=== PATIENT | female | born 1940 | race Caucasian/White ===

== ENCOUNTER 2016-05-23 06:51 | Day surgery (SDC) | payer BC ==
--- NOTE | ~2016-05-23 | EGD ---
EGD REPORT [facility] [address] [place]. [place] [address] NAME: BHUPINDER MEDRANO : [birth year] STATUS : REG [facility] [place] PAT#: [id number] AGE: 76 ADM/REG DATE : 05/23/16 MR#: [id number] REPORT SERV DATE: 05/23/16 DICTATED BY: VONDA SALDIVAR DATE: 05/23/16 REPORT STATUS : Draft TRANSCRIBED BY: [employer] DATE: 05/23/16 [facility] Patient Name: Bhupinder Medrano Date of : 1940 Attending MD: VONDA SALDIVAR MD Procedure Date No Time: 05/23/2016 Procedure: Colonoscopy Indications: High risk colon cancer surveillance: Personal history of colonic polyps, FH of Colonic Polyps - 1st degree relative Referring MD: AIDE LEMUS Medicines: as per anesthesia Complications: No immediate complications. Procedure: Pre-Anesthesia Assessment: - ASA Grade Assessment: II - A patient with mild systemic disease. After I obtained informed consent, the scope was passed under direct vision. Throughout the procedure, the patient's blood pressure, pulse, and oxygen saturations were monitored continuously. The PCF [id number] was introduced through the anus and advanced to the cecum, identified by appendiceal orifice and ileocecal valve. The colonoscopy was performed without difficulty. The patient tolerated the procedure well. The quality of the bowel preparation was adequate to identify polyps. Findings: The perianal and digital rectal examinations were normal. A sessile polyp was found in the ascending colon. The polyp was 4 mm in size. The polyp was removed with a cold biopsy forceps. Resection and retrieval were complete. A few small and large-mouthed diverticula were found in the sigmoid colon, in the transverse colon and in the ascending colon. Internal hemorrhoids were found during endoscopy and were mild. Impression: - One 4 mm polyp in the ascending colon. Resected and retrieved. - Diverticulosis in the sigmoid colon, in the transverse colon and in the ascending colon. - Internal hemorrhoids. Recommendation: - Await pathology results. - Repeat colonoscopy for surveillance based on pathology results. EGD REPORT [facility] [address] [place]. [address] NAME: BHUPINDER MEDRANO : [birth year] STATUS : REG [facility]#: [id number] AGE: 76 ADM/REG DATE : 05/23/16 MR#: [id number] REPORT SERV DATE: 05/23/16 DICTATED BY: VONDA SALDIVAR. DATE: 05/23/16 REPORT STATUS : Draft TRANSCRIBED BY: [employer] DATE: 05/23/16 Procedure Code(s): --- Professional --- 55372, Colonoscopy, flexible, proximal to splenic flexure; with biopsy, single or multiple Diagnosis Code(s): --- Professional --- D12.2, Benign neoplasm of ascending colon K64.8, Other hemorrhoids K57.30, Diverticulosis of large intestine without perforation or abscess without bleeding Z86.010, Personal history of colonic polyps Z83.71, Family history of colonic polyps CPT copyright 2013 [employer]. All rights reserved. The codes documented in this report are preliminary and upon social media executive review may be revised to meet current compliance requirements. VONDA SALDIVAR MD 05/23/2016 8:57 AM This report has been signed electronically. Number of Addenda: 0 Note Initiated On: 05/23/2016 8:31 AM Scope Withdrawal Time 0 hours 6 minutes 24 seconds [address] [place] [address]
[~2016-05-23 06:51] MED LIST: ADVIL PO; ASAB; ASAB PO; B1100 PO; CELEXA20 PO; CELEXA40 MG PO; CYANO1000T PO; FOLIC PO; MCZ25; MULTI-VIT HP PO; PCET PO; PRAV10 PO; PRAVAC PO; PRILO PO; PRIN5 PO; PROTONIX PO; PROZAC PO; STERAPRED DS10 MG; SYN.025B PO; ULTRAM50 PO; VENTOLIN HFA INH; VITAMIN B-121000 MC1 SL; VITAMIN D1000 UNI1 PO; WELLSR150 PO; X25 PO
== END 2016-05-23 23:59 | disposition home or self-care (01) ==
LOC: DMU 06:51
PROVIDERS: Internal Medicine Gastroenterology
PROC: 0DBK8ZZ Excision of Ascending Colon, Via Natural or Artificial Opening Endoscopic (ICD-10-PCS; principal; 2016-05-23 08:30)
DX: D12.2 Benign neoplasm of ascending colon (principal); K57.30 Diverticulosis of large intestine without perforation or abscess without bleeding; K64.8 Other hemorrhoids; E78.5 Hyperlipidemia, unspecified; K21.9 Gastro-esophageal reflux disease without esophagitis; E78.00 Pure hypercholesterolemia, unspecified; G47.33 Obstructive sleep apnea (adult) (pediatric); M19.90 Unspecified osteoarthritis, unspecified site; Z86.010 Personal history of colon polyps; Z79.899 Other long term (current) drug therapy; Z90.89 Acquired absence of other organs; Z90.710 Acquired absence of both cervix and uterus; Z90.722 Acquired absence of ovaries, bilateral; Z98.890 Other specified postprocedural states
CPT/HCPCS: 88305